=== PATIENT | female | born 1975 | race Caucasian/White ===

== ENCOUNTER 2018-02-16 14:39 | Outpatient (CLI) | payer OTHER ==
--- NOTE | 2018-02-16 15:21 | MMO ---
BILATERAL DIGITAL SCREENING MAMMOGRAMS: Date: 02/16/18 This patient's mammogram was interpreted with the assistance of computer-aided detection. HISTORY: Left lumpectomy in 1994. FINDINGS: Baseline exam. There are no previous exams for comparison. The breast tissue is heterogeneously dense, which may reduce the sensitivity of mammography. Focal as ymmetry seen in the left lower inner breast. IMPRESSION: BIRADS 0: Incomplete: Need Additional Imaging Evaluation and/or Prior Mammograms for Comparison Left diagnostic mammogram and left breast ultrasound is recommended. The facility will notify patient of need for additional imaging services. POS: [facility]
== END 2018-02-16 14:40 | disposition home or self-care (01) ==
LOC: SCSMAMMO 14:39
PROVIDERS: ATTEND Family Medicine
DX: Z12.31 Encounter for screening mammogram for malignant neoplasm of breast (principal)
CPT/HCPCS: 77067

== ENCOUNTER 2018-02-24 09:00 | Outpatient (CLI) | payer OTHER | END 2018-02-24 09:01 | disposition home or self-care (01) | LOC: BICMAMMO 09:00 | PROVIDERS: ATTEND Family Medicine | DX: R92.8 Other abnormal and inconclusive findings on diagnostic imaging of breast (principal) | CPT/HCPCS: G0279 ==